=== PATIENT | male | born 1950 | race Caucasian/White ===

== ENCOUNTER 2018-03-07 13:59 | Emergency (ER) | payer BC ==
--- NOTE | 2018-03-07 14:34 | ER Document Report ---
ED Medical Screen (RME) - General Chief Complaint: Leg Pain Stated Complaint: LEG PAIN Time Seen by Provider: 03/07/18 14:29 Notes: This 67-year-old male patient was sent over from [facility] to be evaluated for blood clots in his right calf. Thursday afternoon while sitting in his truck at lunch, he started having pain in the right calf. There is been no swelling. He does not take statins. There is no injury or excessive walking by history. I have greeted and performed a rapid initial assessment of this patient. A comprehensive ED assessment and evaluation of the patient, analysis of test results and completion of the medical decision making process will be conducted by additional ED providers. TRAVEL OUTSIDE OF THE [place] IN LAST 30 DAYS: No - Related Data Allergies/Adverse Reactions: No Known Allergies Allergy (Verified 03/07/18 14:00) Past Medical History - Social History Chew tobacco use (# tins/day): No Frequency of alcohol use: Heavy Drug Abuse: None Renal/ Medical History: Denies: Hx Peritoneal Dialysis Physical Exam - Vital signs Vitals: Temp Pulse Resp BP Pulse Ox 98.1 F 89 16 133/89 H 96 03/07/18 14:24 03/07/18 14:24 03/07/18 14:24 03/07/18 14:24 03/07/18 14:24 Course - Vital Signs Vital signs: Temp Pulse Resp BP Pulse Ox 98.1 F 89 16 133/89 H 96 03/07/18 14:24 03/07/18 14:24 03/07/18 14:24 03/07/18 14:24 03/07/18 14:24
[2018-03-07 15:34] LABS: ABSOLUTE BASOPHILS # (AUTO) 0.1 10^3/uL (0.0-0.2); ABSOLUTE LYMPHOCYTES (AUTO) 1.1 10^3/uL (0.5-4.7); ABSOLUTE MONOCYTES (AUTO) 0.6 10^3/uL (0.1-1.4); ABSOLUTE NEUT (AUTO) 6.2 10^3/uL (1.7-8.2); EOSINOPHILS % (AUTO) 0.5 % (0-6); HEMOGLOBIN 19.9 g/dL (13.5-17.0); LYMPHOCYTES % (AUTO) 13.8 % (13-45); MEAN CORPUSCULAR HEMOGLOBIN 30.7 pg (27.0-33.4); MEAN CORPUSCULAR HGB CONC 33.4 g/dL (32.0-36.0); MEAN CORPUSCULAR VOLUME 92 fl (80-97); MONOCYTES % (AUTO) 7.9 % (3-13); PLATELET COUNT 245 10^3/uL (150-450); RED BLOOD COUNT 6.47 10^6/uL (4.35-5.55); RED CELL DISTRIBUTION WIDTH 14.9 % (11.5-14.0); SEGMENTED NEUTROPHILS % (AUTO) 76.8 % (42-78); TOTAL CELLS COUNTED % (AUTO) 100 %
[2018-03-07 15:35] LABS: HEMATOCRIT 59.6 % (37.9-51.0)
[2018-03-07 15:39] LABS: ALANINE AMINOTRANSFERASE 57 U/L (21-72); ALBUMIN 4.7 g/dL (3.5-5.0); ALKALINE PHOSPHATASE 164 U/L (38-126); ANION GAP 15 (5-19); ASPARTATE AMINO TRANSFERASE 57 U/L (17-59); BILIRUBIN,DIRECT 0.6 mg/dL (0.0-0.4); BILIRUBIN,TOTAL 2.2 mg/dL (0.2-1.3); BLOOD UREA NITROGEN 14 mg/dL (7-20); CALCIUM 10.6 mg/dL (8.4-10.2); CARBON DIOXIDE 34 mmol/L (22-30); CHLORIDE 88 mmol/L (98-107); CREATINE KINASE 223 U/L (55-170); GLUCOSE 100 mg/dL (75-110); SODIUM 136.9 mmol/L (137-145); TOTAL PROTEIN 8.2 g/dL (6.3-8.2)
[2018-03-07 15:42] LABS: POTASSIUM 6.1 mmol/L (3.6-5.0)
[2018-03-07] MEDS: NORMAL SALINE 1000 ML 1,000 ML IV PRN ×2 (16:14→16:15)
[2018-03-07 16:38] LABS: ANION GAP 10 (5-19); BLOOD UREA NITROGEN 15 mg/dL (7-20); CALCIUM 10.3 mg/dL (8.4-10.2); CARBON DIOXIDE 36 mmol/L (22-30); CHLORIDE 88 mmol/L (98-107); GLUCOSE 99 mg/dL (75-110); SODIUM 133.8 mmol/L (137-145)
--- NOTE | 2018-03-07 18:28 | RADIOLOGY REPORT (SQ) ---
EXAM DESCRIPTION: VENOUS UNILATERAL LOWER COMPLETED DATE/TIME: 03/07/2018 6:17 pm REASON FOR STUDY: Pain in right calf COMPARISON: None. TECHNIQUE: Dynamic and static perea scale and color images acquired of the right leg venous system. S elected spectral images acquired with additional compression and augmentation maneuvers. The contrala teral common femoral vein and saphenofemoral junction were also imaged. Images stored on PACS. LIMITATIONS: None. FINDINGS: COMMON FEMORAL: Normal phasicity, compression and augmentation. No visualized echogenic ma terial on perea scale. No defects on color images. FEMORAL: Normal compression and augmentation. No visualized echogenic material on perea scale. No defe cts on color images. POPLITEAL: Normal compression, augmentation. No visualized echogenic material on perea scale. No defec ts on color images. CALF VESSELS: Normal compression, augmentation. No visualized echogenic material on perea scale. No de fects on color images. GSV and SSV: Normal compression, augmentation. No visualized echogenic material on perea scale. No def ects on color images. ANY DEEP VENOUS INSUFFICIENCY: Not evaluated. ANY EVIDENCE OF POPLITEAL CYST: No. OTHER: No other significant finding. CONTRALATERAL COMMON FEMORAL VEIN AND SAPHENOFEMORAL JUNCTION: Normal phasicity, compression and augmentation. No visualized echogenic material on perea scale. No de fects on color images. IMPRESSION: NO EVIDENCE DVT OR SVT IN THE RIGHT LEG. TECHNICAL DOCUMENTATION: JOB ID: [id number] [employer]- All Rights Reserved Reading location - IP/workstation name: [email or web address]
[2018-03-07 19:06] VITALS: BP 110/73
--- NOTE | 2018-03-07 19:10 | EKG REPORT ---
SEVERITY:- BORDERLINE ECG - SINUS RHYTHM BORDERLINE RIGHT AXIS DEVIATION BORDERLINE PROLONGED QT INTERVAL : Confirmed by: Wanda Reynaga 07-Mar-2018 19:08:45
[2018-03-07] MEDS ORDERED: ASPIRIN 81 MG TABLET, CHEWABLE PO ONE (19:19)
--- NOTE | 2018-03-07 19:30 | ER Document Report ---
ED Extremity Problem, Lower - General Chief Complaint: Leg Pain Stated Complaint: LEG PAIN Time Seen by Provider: 03/07/18 14:29 Notes: Patient says he has been experiencing pain in the right mid calf region since Thursday about 1 PM. It feels like a cramp and is concerned he may have a blood clot and wishes to have it checked. He has not noticed any swelling of the lower portion of the right leg. Has not experienced an injury. He works as a retail product demo specialist, mostly sitting. He does describe numbness of both of his feet for several months that has not changed recently. He also notes that his feet are cold, but says his hands are cold as well. And, he says that his cold feet have been this way for more than months. He had some similar cramping in the leg about 3 years ago and was seen in [place] and had a workup and nothing serious was found. Patient denies any chest pains, shortness of breath , difficulty breathing, etc. He does have COPD and smokes about a pack of cigarettes a day. TRAVEL OUTSIDE OF THE [place] IN LAST 30 DAYS: No - Related Data Allergies/Adverse Reactions: No Known Allergies Allergy (Verified 03/07/18 14:00) Past Medical History - Social History Smoking Status: Current Every Day Smoker Chew tobacco use (# tins/day): No Frequency of alcohol use: Heavy Drug Abuse: None Family History: Reviewed & Not Pertinent Patient has suicidal ideation: No Patient has homicidal ideation: No - Past Medical History Cardiac Medical History: Reports: Hx Hypertension Pulmonary Medical History: Reports: Hx COPD Review of Systems - Review of Systems Notes: REVIEW OF SYSTEMS: CONSTITUTIONAL : Denies fever. EENT: Denies eye, ear, nose or mouth or throat pain or other symptoms. CARDIOVASCULAR: Denies chest pain. RESPIRATORY: Denies cough, chest congestion, or shortness of breath. GASTROINTESTINAL: Denies abdominal pain or nausea, vomiting, or diarrhea. GENITOURINARY: Denies difficulty or painful urinating, urinary frequency, blood in urine. MUSCULOSKELETAL: Denies back or neck pain. Denies joint pain or swelling. See HPI. SKIN: Denies rash or skin lesions. NEUROLOGICAL: Denies LOC or altered mental status. Denies headache. Denies sensory loss or motor deficits. ALL OTHER SYSTEMS REVIEWED AND NEGATIVE. Physical Exam - Vital signs Vitals: Temp Pulse Resp BP Pulse Ox 98.1 F 89 16 133/89 H 96 03/07/18 14:24 03/07/18 14:24 03/07/18 14:24 03/07/18 14:24 03/07/18 14:24 Interpretation: Normal - Notes Notes: PHYSICAL EXAMINATION: GENERAL: Well-appearing, in no acute distress. Patient is able to ambulate without any limp or difficulty. Says he does not have pain to walk. HEAD: Atraumatic, normocephalic. EYES: Pupils equal round and reactive to light, extraocular movements intact. ENT: oropharynx clear without exudates. Moist mucous membranes. NECK: Normal range of motion, supple. LUNGS: Breath sounds clear and equal bilaterally. HEART: Regular rate and rhythm without murmurs. ABDOMEN: Soft, nontender. No guarding or rebound. No masses. No bruits heard. BACK: No tenderness throughout entire back. EXTREMITIES: Normal range of motion without pain. Right lower leg does not show any soft tissue swelling, does not have any pain for me to squeeze on the gastrocnemius muscle and Homans sign is negative bilaterally. Patient's feet are cold to the touch, but there is no clear demarcation point. He does have bilateral femoral pulses to palpation. However, I do not palpate any dorsalis pedis pulses or posterior tibial pulses bilaterally. He has capillary refill of about 2-3 seconds of the big toe on both feet. The bottom of his feet and toes are pink, not cyanotic. Patient says his feet have been just like this for several months and there is been no change in his condition other than for the pain that he was having in the mid right posterior calf that he thought might be a DVT. NEUROLOGICAL: Normal speech, normal gait. Normal sensory, motor, and reflex exams. Awake, alert, and oriented x3. Cranial nerves normal. PSYCH: Normal mood, normal affect. SKIN: Warm, dry, no rashes. Course - Re-evaluation Re-evalutation: 03/07/18 20:[address] Claudio in [place] and we both feel that his presentation is more consistent with a chronic condition than an acute condition. We would be willing to send the patient to [facility] if there were beds available, but they are not at this time. Alternatively, it was suggested that I start the patient on aspirin and have him call their office for a prompt follow-up visit. I provided the patient the contact information for Dr. Claudio. I told the patient he must stop smoking. He should be taking an adult aspirin daily until someone changes the dose. I have advised him if there is any change in his condition in any way he should return for us to reevaluate or consider going to another hospital where they have in-house care of vascular insufficiency. I provided him with my home and cell phone number so he can contact me if there is any change or if he has difficulty getting in to see the vascular surgeons in a reasonably prompt time. Once again, I question the patient and he insisted that he does not have any new symptoms of either lower extremity except for the pain in the mid posterior right calf that he has had for 3 or 4 days and thought was a DVT. His feet are the same as they have been 4 months. Patient understands the importance of being honest about his symptoms and the potential for losing the limb. - Vital Signs Vital signs: Temp Pulse Resp BP Pulse Ox 98.1 F 89 16 110/73 94 03/07/18 14:24 03/07/18 14:24 03/07/18 19:01 03/07/18 19:01 03/07/18 19:01 - Laboratory Result Diagrams: 03/07/18 15:06 03/07/18 16:10 Laboratory results interpreted by me: 03/07/18 03/07/18 03/07/18 15:06 15:06 15:06 RBC 6.47 H Hgb 19.9 H Hct 59.6 H RDW 14.9 H D-Dimer 0.64 H Sodium 136.9 L Potassium 6.1 H* Chloride 88 L Carbon Dioxide 34 H Calcium 10.6 H Total Bilirubin 2.2 H Direct Bilirubin 0.6 H Alkaline Phosphatase 164 H Creatine Kinase 223 H 03/07/18 16:10 RBC Hgb Hct RDW D-Dimer Sodium 133.8 L Potassium Chloride 88 L Carbon Dioxide 36 H Calcium 10.3 H Total Bilirubin Direct Bilirubin Alkaline Phosphatase Creatine Kinase - Diagnostic Test Radiology reviewed: Image reviewed, Reports reviewed - Ultrasound shows no evidence of DVT of the lower right leg. Ultrasound does show diffuse severe peripheral vascular disease with occlusion of the femoral artery all the way down on the right and similar severe findings on the left although it does appear that he has reconstituted his blood vessels in the popliteal region. Discharge - Discharge Clinical Impression: Peripheral vascular disease Condition: Stable Disposition: HOME, SELF-CARE Additional Instructions: Peripheral Vascular Disease You have narrowing of the arteries in your arms and legs. This is called peripheral vascular disease. It's caused by "hardening of the arteries" and cholesterol deposits. This problem develops gradually due to high blood pressure , cigarette smoking, diabetes, or high cholesterol. Symptoms can include pain leg and foot cramps, leg pain while walking, and numbness and discoloration in the feet or toes. Vascular disease makes the feet and legs prone to infection, skin ulcers, and slow healing of injuries. A narrowed artery can suddenly block, resulting in complete loss of circulation to a foot or toe. An ultrasound or angiogram can show if the blockage can be treated with surgery. Non-surgical treatment includes regular exercise with brief periods of rest during the exercise. This improves the circulation. If you smoke, stop. Elevated cholesterol, high blood pressure, or high blood sugar should be treated. Medication can sometimes help blood get through the narrowed arteries. Take good care of your feet. Wear shoes that fit properly. Be very careful not to injure your feet. Even minor cuts need immediate care to prevent infection and skin ulcers. Call the doctor or return if you develop severe foot or leg pain, fever, signs of infection (redness, pain, swelling), or a foot or toe becomes weak, cold, pale, or dusky. You have severe peripheral vascular disease in both legs. It is important that you follow-up with a vascular surgeon as soon as possible. I am providing you contact information for jennifer Claudio in [place]. His telephone number is area code [phone], [phone]. Call his office first thing tomorrow, Thursday, morning to schedule an appointment as soon as possible. Stop Smoking You should stop smoking. The tar and chemicals in cigarette smoke are harmful. Smoking has been shown to cause: Emphysema and chronic bronchitis Lung cancer Cancer of the mouth, larynx, stomach, and pancreas Heart disease and stroke Stillbirths and miscarriage Premature aging In addition, smoking increases the chances of respiratory infections and ear infections in children of smokers, and increases the risk of cancer in persons exposed to second-hand smoke. Classes are available to help you stop smoking. If you are serious about wanting to quit, we can help arrange this therapy for you, or you can contact the local lung or cancer association. Aspirin Aspirin has been shown to have a beneficial effect on blood circulation by reducing the clotting effect of platelets in the blood. These beneficial effects can be achieved by taking just a single baby (62.5 mg) aspirin a day. It is recommended that any person over the age of forty take a single baby aspirin every day for heart and brain circulation, unless you are allergic to aspirin or have some significant bleeding disorder. It is strongly recommended that people who have proven cardiac or blood circulation disturbances should take a baby aspirin every day. You should take one adult aspirin daily. That is equivalent to 4 baby aspirins. Eventually, you may be able to take less, but started off by taking one adult aspirin daily. FOLLOW-UP CARE: If you have been referred to a physician for follow-up care, call the physician s office for an appointment as you were instructed or within the next two days. If you experience worsening or a significant change in your symptoms, notify the physician immediately or return to the Emergency Department at any time for re-evaluation. Referrals: ALCIDES LAU MD [Primary Care Provider] - Follow up as needed
--- NOTE | 2018-03-08 09:20 | XCELERA REPORT ---
[address] [address] Lower Extremity Arterial Evaluation Name: KEENAN KLEIN Age: 67 yrs Gender: Male : 1950 Patient Status: Preadmit Patient Location: ER Study Date: 03/07/2018 05:38 PM Procedure: A color flow and duplex scan of the lower extremity arteries was performed bilaterally with velocity and waveform anaylsis. Reason For Study: Cold feet, ? Arterial pulses in feet Ordering Physician: ANTHONY MCKEON Performed By: Giovana Dawson Measurements and Calculations Right Left CINEMA OPERATOR PSV 67.4 61.0 cm/sec Prox PFA PSV -86.0 -82.9 cm/sec Prox SFA PSV 52.1 cm/sec Mid SFA PSV -22.6 cm/sec Prox Pop A PSV 9.8 cm/sec Prox SLITTER PROCESSED FILM PSV 10.4 13.9 cm/sec Mid SLITTER PROCESSED FILM PSV 6.7 8.1 cm/sec Dist SLITTER PROCESSED FILM PSV 8.3 8.1 cm/sec Right Side Arterial Evaluation Normal velocity and triphasic waveforms noted in the Common Femoral artery. Occluded Femoral with monophasic reconstitution to the Posterior Tibial artery. Occluded Popliteal and Anterior Tibial artery. Biphasic in the Deep Femoral . Occlusion at the Femoral artery. Multiple areas of stenosis , occlusion. Ankle Brachial index was not done. Left Side Arterial Evaluation Normal velocity and triphasic waveforms noted in the Common Femoral artery. Occluded Femoral with monophasic reconstitution to the Posterior Tibial artery. Occluded Anterior Tibial artery. Occlusion at the Femoral artery. Multiple areas of stenosis , occlusion. Ankle Brachial index was not done. Critical Findings Discussed with Dr Mckeon at about 1900, In spite of advanced severity of disease, symptoms have been present for months. Vascular intervention evaluation to be initiated , by patient, this week. Interpretation Summary Severe hemodynamically significant lesions in the bilateral lower extremities, on duplex imaging, at rest. Unusually severe , multiple areas of disease. Compatible with limb threat. : ANTHONY MCKEON > Jeremías Jorgensen
--- NOTE | 2018-03-10 10:20 | ER Document Report ---
Doctor's Note Notes: 03/10/18 10:16 I called patient at his work place. Says he has had no change in his symptoms. Is able to work. Has made an appointment to be seen by vascular surgeons in [place] "Thursday week", 9 days from now. Understands that if either foot changes color to blue or purple or he has any new symptoms at all, to go to [facility] Emergency Department immediately. Patient understands that advice and reason for it and again stresses that he has no new or change in symptoms. Valentina Sargent MD
== END 2018-03-07 19:20 | disposition home or self-care (01) ==
LOC: ER 13:59
DX: I73.9 Peripheral vascular disease, unspecified (principal); M79.661 Pain in right lower leg; F17.200 Nicotine dependence, unspecified, uncomplicated; I10 Essential (primary) hypertension
CPT/HCPCS: 93005; 99284; 96360; 36415; 82550; 85025; 80048; 80053; 85379; 93925 ×2; 93971; 93010; J7030